=== PATIENT | female | born 1975 | race Caucasian/White ===

== ENCOUNTER 2018-02-08 08:42 | Day surgery (SDC) | payer OTHER ==
[2018-02-07 16:08] VITALS: BMI 25.4
[2018-02-08] MEDS ORDERED: CEFAZOLIN/Water 2 GM/20 ML SYRINGE ONE (09:47)
[2018-02-08] MEDS ORDERED: Ketorolac Tromethamine 30 MG/ML VIAL ONE (09:47)
[2018-02-08] MEDS ORDERED: Bupivacaine/Epinephrine 0.25% 30 ML VIAL ONE (12:13)
[2018-02-08] MEDS ORDERED: Midazolam HCl 2 mg/2 ml Vial ONE ×2 (12:20→12:34)
[2018-02-08] MEDS ORDERED: Fentanyl 100 MCG/2 ML VIAL ONE ×2 (12:34→14:36)
[2018-02-08] MEDS ORDERED: Dexamethasone 20 MG/5 ML VIAL ONE (12:37)
[2018-02-08] MEDS ORDERED: Lidocaine 1% PF 5 ML VIAL ONE (12:37)
[2018-02-08] MEDS ORDERED: PHENYLEPHRINE-NS 100 MCG/ML 10 ML SYRINGE ONE (12:37)
[2018-02-08] MEDS ORDERED: PROPOFOL 200 MG/20 ML VIAL ONE (12:37)
[2018-02-08] MEDS ORDERED: Ondansetron HCl/PF 4 MG/2 ML Vial ONE (12:37)
[2018-02-08] MEDS ORDERED: Glycopyrrolate 0.2 MG/ML 5 ML SYRINGE ONE (12:37)
[2018-02-08] MEDS ORDERED: Acetaminophen/Codeine 120-12MG/5 ML UDCUP ONE (15:59)
[2018-02-08] MEDS ORDERED: Acetaminophen/Codeine 30-300mg Tablet ONE ×2 (16:07→16:49)
--- NOTE | 2018-02-09 03:52 | OP ---
DATE OF OPERATION: 02/08/2018 PREOPERATIVE DIAGNOSIS: Right inguinal hernia. POSTOPERATIVE DIAGNOSIS: Right inguinal hernia, indirect. OPERATION PERFORMED: Robotic right inguinal hernia repair with large 3DMax mesh patch. SURGEON: Jose Dent M.D. ANESTHESIA: General endotracheal. INDICATIONS: The patient is a 43-year-old white female. She presented with obvious palpable and vis ible right inguinal hernia and is taken to the operating room for robotic repair. DESCRIPTION OF OPERATION: Informed consent was obtained. The patient was taken to the operating robel m where general endotracheal anesthesia obtained with the patient in supine position. Abdomen was pr epped with ChloraPrep and draped in sterile fashion. Local anesthetic was infiltrated and 0.25% Conner betsey with epinephrine was infiltrated. An 11 mm supraumbilical incision was created through which a Veress needle was passed into the peritoneal cavity and pneumoperitoneum established using carbon deisy xide up to a pressure of 15 mmHg. An 11 mm trocar was passed through this same incision. Laparoscop ic camera was passed through this port. Under direct vision, 2 additional 8 mm robotic ports were pl aced on either side of midline at the supraumbilical level. The robot was docked to the port and the camera and the operation was continued from the robotic console. Examination revealed that the patient had an obvious indirect inguinal hernia on the right. There is no evidence of a hernia on the left. A transverse peritoneal incision was created. Preperitoneal dissection was carried inferiorly. The pubic tubercle was identified medially. The hernia sac was dissected out of the canal. The round li gament was divided and the sac and ligament were everted. A large mesh patch was obtained and placed in the preperitoneal space. It was secured in place with 3 interrupted sutures of 3-0 Vicryl. These were placed to the pubic tubercle, to the anterior abdomi nal wall just lateral to the epigastric vessels, into the abdominal wall laterally just superior to t he iliopubic tract. The peritoneum was then closed with a running suture of 3-0 Stratafix. There cordoba d been essentially no blood loss during the course of the operation. The fascia supraumbilical was closed with 0 Vicryl suture using a GraNee needle. All ports and instr uments removed under direct vision. Pneumoperitoneum was carefully evacuated. A 0.25% Marcaine with epinephrine was infiltrated at each port site. Skin edges approximated with 4-0 Monocryl subcuticul ar suture. Dermabond was placed externally. There were no complications. The patient tolerated the procedure well and was taken to recovery room in stable condition.
== END 2018-02-08 17:35 | disposition home or self-care (01) ==
LOC: SDC 08:42
PROVIDERS: ATTEND Specialist
PROC: 0YU54JZ Supplement Right Inguinal Region with Synthetic Substitute, Percutaneous Endoscopic Approach (ICD-10-PCS; principal; 2018-02-08)
PROC: 8E0W4CZ Robotic Assisted Procedure of Trunk Region, Percutaneous Endoscopic Approach (ICD-10-PCS; principal; 2018-02-08)
DX: K40.90 Unilateral inguinal hernia, without obstruction or gangrene, not specified as recurrent (principal); Z79.899 Other long term (current) drug therapy
CPT/HCPCS: 96374; C1781; J0131; J1100; J1885; J2001; J2250; J2405; J2704; J3010